=== PATIENT | female | born 1980 | race Hispanic/Latino ===

== ENCOUNTER 2018-05-13 14:23 | Emergency (ER) | payer MEDICAID, OTHER ==
[2018-05-13 14:50] LABS: APPEARANCE,URINE CLOUDY (CLEAR); BILIRUBIN,URINE SMALL (NEGATIVE); COLOR,URINE ORANGE (YELLOW); GLUCOSE, URINE (UA) 100 mg/dL (NEGATIVE); KETONES,URINE >=80 mg/dL (NEGATIVE); LEUKOCYTE ESTERASE ,URINE MODERATE (NEGATIVE); NITRATE,URINE POSITIVE (NEGATIVE); OCCULT BLOOD,URINE LARGE (NEGATIVE); PROTEIN,URINE >=300 (NEGATIVE)
[2018-05-13 14:52] LABS: HCG,QUAL RESULT NEGATIVE (NEGATIVE)
[2018-05-13 15:04] LABS: BACTERIA,URINE Rare /HPF (None Seen); WBC,URINE 26-50 /HPF (0-1)
[2018-05-13 15:05] LABS: MUCUS,URINE Rare LPF (None Seen); SQUAMOUS EPITHELIAL CELL,UR Rare /HPF (0-2)
[2018-05-13] MEDS ORDERED: LIDOCAINE HCL-MPF 1% 2ML VIAL ONE (15:13)
[2018-05-13] MEDS ORDERED: CEFTRIAXONE SODIUM 1 GM ONE (15:13)
== END 2018-05-13 15:46 | disposition home or self-care (01) ==
LOC: EDH 14:23
DX: N39.0 Urinary tract infection, site not specified (principal)
CPT/HCPCS: 81001; 81025; 96372; 99284; J0696; J3490

== ENCOUNTER 2018-06-23 07:18 | Observation (INO) | payer MEDICAID ==
[2018-06-22 15:46] VITALS: BP 109/76
[2018-06-22 16:27] LABS: BASOPHILS % (AUTO) 1.9 % (0.0-5.0); EOSINOPHILS % (AUTO) 3.3 % (0.0-8.0); HEMATOCRIT 40.6 % (36-48); LYMPHOCYTES % (AUTO) 29.7 % (21.0-51.0); MEAN CORPUSCULAR HEMOGLOBIN 32.5 pg (27.0-33.0); MEAN CORPUSCULAR HGB CONC 33.5 g/dL (32.0-36.0); MEAN CORPUSCULAR VOLUME 97.1 fL (79-99); MONOCYTES % (AUTO) 6.2 % (3.0-13.0); NEUTROPHILS % (AUTO) 58.9 % (40.0-77.0); NUCLEATED RED BLOOD CELLS 0.2 % (0.0-0.19); PLATELET COUNT (AUTO) 346 K/uL (130-400); RED BLOOD CELL COUNT(AUTO) 4.18 MIL/uL (4.00-5.50); RED CELL DISTRIBUTION WIDTH 13.2 % (11.0-15.5); WHITE BLOOD COUNT (AUTO) 4.6 K/uL (4.8-10.8)
[2018-06-23] VITALS (23 sets, daily range): BP systolic 95–129; BP diastolic 50–82
[~2018-06-23] VITALS: Ht 162.6 cm; Wt 71.1 kg
[2018-06-23] MEDS: CEFAZOLIN SODIUM 1 GM VIAL IVP SCH ×2 (06:00→09:20)
[~2018-06-23 07:18] MED LIST: LACTATED RINGERS 1000ML 1,000 ML IV SCH
[2018-06-23] MEDS ORDERED: FENTANYL CITRATE PF 50 MCG/1 ML 2ML VIAL ONE ×2 (09:14→11:32)
[2018-06-23] MEDS ORDERED: LIDOCAINE HCL-MPF 1% 5ML AMP IJ ONE (09:14)
[2018-06-23] MEDS ORDERED: PROPOFOL 10 MG/ML 20ML VIAL IV ONE (09:15)
[2018-06-23] MEDS ORDERED: ROCURONIUM 10MG/1ML SYR 10 MG/ML ML ONE (09:15)
[2018-06-23] MEDS ORDERED: MIDAZOLAM HCL 1 MG/ML 2ML VIAL ONE (09:18)
[2018-06-23] MEDS ORDERED: DEXAMETHASONE SOD PHOSPHATE 10MG/ML 1ML VIAL ONE (09:33)
[2018-06-23] MEDS ORDERED: ONDANSETRON HCL MDV 20ML 2 MG/ML VIAL ONE (09:33)
[2018-06-23] MEDS ORDERED: NEOSTIGMINE 5MG/5ML SYR IV ONE (10:37)
[2018-06-23] MEDS ORDERED: GLYCOPYRROLATE 1 MG/5 ML SYRINGE ONE (10:37)
[2018-06-23] MEDS ORDERED: MEPERIDINE-PF 25 MG/ML SYG ONE ×2 (10:59→11:09)
[2018-06-23] MEDS ORDERED: KETOROLAC TROMETHAMINE 30MG/ML ONE (11:15)
[2018-06-23] MEDS ORDERED: BISACODYL 10 MG SUPP.RECT RC PRN (12:00)
[2018-06-23] MEDS ORDERED: ACETAMINOPHEN-CODEINE 300/30MG TAB PO PRN (12:00)
[2018-06-23] MEDS ORDERED: PROMETHAZINE HCL 25 MG/ML 1ML AMPULE IM PRN (12:00)
[2018-06-23] MEDS ORDERED: ONDANSETRON HCL 4 MG/2 ML VIAL IVP PRN (12:00)
[2018-06-23] MEDS: DEXTROSE 5 %-0.45 % NACL 1,000 ML IV PRN ×2 (12:25→20:25)
[2018-06-23] MEDS: MEPERIDINE-PF 75 MG/ML SYG IM PRN ×2 (12:42→17:20)
[2018-06-23] MEDS: PROMETHAZINE HCL 25 MG/ML 1ML AMPULE IM PRN ×2 (12:43→17:22)
[2018-06-23] MEDS: DOCUSATE SODIUM 100 MG CAP PO PRN (20:36)
[2018-06-23] MEDS: IBUPROFEN 600 MG TABLET PO PRN (20:36)
[2018-06-23] MEDS: SIMETHICONE 80 MG TAB.CHEW PO PRN (20:36)
[2018-06-24 00:06] VITALS: BP 108/60
[2018-06-24 03:10] VITALS: BP 107/62
[2018-06-24 03:56] VITALS: BP 108/59
[2018-06-24] MEDS: IBUPROFEN 600 MG TABLET PO PRN ×2 (04:05→09:40)
[2018-06-24] MEDS: DEXTROSE 5 %-0.45 % NACL 1,000 ML IV PRN (04:06)
[2018-06-24 05:53] LABS: HEMATOCRIT 34.6 % (36-48); MEAN CORPUSCULAR HEMOGLOBIN 32.1 pg (27.0-33.0); MEAN CORPUSCULAR HGB CONC 33.3 g/dL (32.0-36.0); MEAN CORPUSCULAR VOLUME 96.5 fL (79-99); PLATELET COUNT (AUTO) 307 K/uL (130-400); RED BLOOD CELL COUNT(AUTO) 3.58 MIL/uL (4.00-5.50); WHITE BLOOD COUNT (AUTO) 9.5 K/uL (4.8-10.8)
[2018-06-24 08:14] VITALS: BP 111/57
[2018-06-24] MEDS: DOCUSATE SODIUM 100 MG CAP PO PRN (09:39)
[2018-06-24] MEDS: SIMETHICONE 80 MG TAB.CHEW PO PRN (09:39)
--- NOTE | 2018-06-24 11:04 | NUR ---
ACTIVITY PT AMBULATING HALLWAY, STEADY GAIT, NO FLATUS YET, TOLERATING WELL
[2018-06-24 11:54] VITALS: BP 100/71
--- NOTE | 2018-06-24 12:39 | NUR ---
ACTIVITY PT AMBULATING HALLWAY, STEADY GAIT, TOLERATING WELL
--- NOTE | 2018-06-24 13:05 | NUR ---
FLATUS PT STATED SHE STARTED PASSING FLATUS AND IS READY TO BE DISCHARGED HOME
--- NOTE | 2018-06-24 13:45 | NUR ---
INSTRUCTIONS PT WOULD NOT ALLOW ME TO READ ALL DISCHARGE INSTRUCTIONS TO HER, STATED "IT'S MY BABY'S 7TH BIRTHDAY AND WE NEED TO LEAVE, DR PARADA EXPLAINED EVERYTHING TO ME THIS MORNING AND SAID I HAVE NO RESTRICTIONS WITH ACTIVITY, I'LL SIGN AND READ EVERYTHING LATER"; PT THEN SIGNED INSTRUCTIONS AND ASKED TO BE WHEELED OUT OF HOSPITAL
--- NOTE | 2018-06-24 13:55 | NUR ---
DISCHARGE PT STABLE, NO PAIN, NO COMPLAINTS; PT LEFT UNIT, VIA WHEELCHAIR, ACCOMPANIED BY RN AND FAMILY MEMBERS CARRYING ALL PERSONAL BELONGINGS, INSTRUCTIONS, AND PRESCRIPTION; PT LEFT FACILITY IN PERSONAL VEHICLE
== END 2018-06-24 13:55 | disposition home or self-care (01) ==
LOC: DAH 07:18 → WSH 07:19 → DAH 07:19
PROVIDERS: ADMIT Obstetrics & Gynecology; ATTEND Obstetrics & Gynecology
DX: N81.2 Incomplete uterovaginal prolapse (principal); K46.9 Unspecified abdominal hernia without obstruction or gangrene; N83.209 Unspecified ovarian cyst, unspecified side; Z79.899 Other long term (current) drug therapy; Z23 Encounter for immunization
CPT/HCPCS: 36415 ×2; 57250; 58262; 84703; 85025; 85027; 86850; 86900; 86901; 88302; 88305; 88307; 96372; A4218; A4351; A4510; A4600; A4606; G0008; G0378 ×31; J0690; J1100; J1885; J2175 ×4; J2250; J2550 ×2; J2704; J2710; J3010 ×2; J3490 ×2; J7040; J7120; Q2035

== ENCOUNTER 2018-06-26 23:06 | Emergency (ER) | payer MEDICAID ==
[2018-06-27] MEDS ORDERED: KETOROLAC TROMETHAMINE 60 MG/2 ML VIAL ONE (00:17)
== END 2018-06-27 01:59 | disposition home or self-care (01) ==
LOC: EDH 23:06
DX: K64.5 Perianal venous thrombosis (principal); Z90.710 Acquired absence of both cervix and uterus
CPT/HCPCS: 96372; 99283; J1885